=== PATIENT | male | born 1995 | race Caucasian/White ===

== ENCOUNTER → 2021-12-26 | Outpatient (CLI) | payer OTHER ==
--- NOTE | 2021-12-28 09:56 | RAD ---
Nuclear medicine whole body bone scan History: Elevated alkaline phosphatase. Comparison: There are no relevant comparison exams. Technique: Examination performed after intravenous administration of 26 mCi Technetium 99m MDP. Imag es of the whole body were obtained in the anterior and posterior projections. Findings: Tracer uptake in the spine is homogeneous. Tracer uptake of ribs is symmetric. Tracer uptake of pelvi c bones is symmetric. Prominent tracer in the urinary bladder obscures the lower sacrum. Visualized a ppendicular skeleton is unremarkable. Tracer distribution in the soft tissues appears physiologic. Impression: No abnormal tracer uptake. Electronically signed by: Maco Davis MD (12/28/2021 9:54 AM) [id number]
== END ==
LOC: NM 07:48
PROVIDERS: ATTEND Family Medicine Sports Medicine
DX: R74.8 Abnormal levels of other serum enzymes (principal)
CPT/HCPCS: 78306; A9503